=== PATIENT | male | born 1975 | race Caucasian/White ===

== ENCOUNTER 2018-09-13 09:56 | Emergency (ER) | payer BC, OTHER ==
[2018-09-13 10:01] VITALS: BP 147/91
--- NOTE | 2018-09-13 10:31 | EDM.PDOC ---
ED HPI GENERAL MEDICAL PROBLEM - General Chief Complaint: General Stated Complaint: FLU [id number] Time Seen by Provider: 09/13/18 10:28 Source of Information: Reports: Patient History Limitations: Reports: No Limitations - History of Present Illness INITIAL COMMENTS - FREE TEXT/NARRATIVE: onset Sx yesterday, F/C cough. - Related Data Allergies Allergy/AdvReac Type Severity Reaction Status Date / Time amoxicillin [Amoxicillin] Allergy Hives Verified 09/13/18 10:01 Penicillins Allergy Hives Verified 09/13/18 10:01 Home Meds: Home Meds Lisinopril 10 mg PO DAILY 01/30/16 [History] atorvaSTATin [Lipitor] 20 mg PO DAILY 01/30/16 [History] Past Medical History Cardiovascular History: Reports: High Cholesterol, Hypertension Respiratory History: Reports: None Gastrointestinal History: Reports: None Genitourinary History: Reports: None Musculoskeletal History: Reports: None Neurological History: Reports: None Psychiatric History: Reports: None Endocrine/Metabolic History: Reports: None Hematologic History: Reports: None Immunologic History: Reports: None Oncologic (Cancer) History: Reports: None Dermatologic History: Reports: None - Infectious Disease History Infectious Disease History: Reports: None - Past Surgical History Head Surgeries/Procedures: Reports: None HEENT Surgical History: Reports: Tonsillectomy Social & Family History - Family History Family Medical History: Noncontributory - Tobacco Use Smoking Status *Q: Current Every Day Smoker Years of Tobacco use: 1 Packs/Tins Daily: 1 - Caffeine Use Caffeine Use: Reports: Coffee - Recreational Drug Use Recreational Drug Use: No ED ROS GENERAL - Review of Systems Review Of Systems: ROS reveals no pertinent complaints other than HPI. ED EXAM, GENERAL - Physical Exam Exam: See Below Exam Limited By: No Limitations General Appearance: Alert, WD/WN, Mild Distress, Other (discomfort) Ears: Normal External Exam, Normal Canal, Hearing Grossly Normal, Normal TMs Throat/Mouth: Normal Voice, No Airway Compromise Head: Atraumatic Neck: Non-Tender, Full Range of Motion Respiratory/Chest: No Respiratory Distress, No Accessory Muscle Use, Rhonchi. No: Decreased Breath Sounds Cardiovascular: Regular Rate, Rhythm GI/Abdominal: Soft, Non-Tender Neurological: Alert, Oriented, Normal Cognition, Normal Gait, No Motor/Sensory Deficits Psychiatric: Normal Affect, Normal Mood Skin Exam: Warm, Dry, Normal Color Lymphatic: No Adenopathy Course - Vital Signs Last Recorded V/S: Last Vital Signs Temp 36.6 C 09/13/18 09:58 Pulse 100 09/13/18 09:58 Resp 16 09/13/18 09:58 BP 147/91 H 09/13/18 09:58 Pulse Ox 96 09/13/18 09:58 Departure - Departure Time of Disposition: 10:29 Disposition: Home, Self-Care 01 Condition: Good Clinical Impression: Flu-like symptoms, Bronchitis - Discharge Information Instructions: Upper Respiratory Infection, Adult, [id number] Additional Instructions: 1) rest and sleep as much as possible 2) drink lots of liquids 3) take tylenol motrin aspirin as needed for body aches and fever 4) recheck as needed
== END 2018-09-13 10:35 | disposition home or self-care (01) ==
LOC: DL.ED 09:56
DX: J11.1 Influenza due to unidentified influenza virus with other respiratory manifestations (principal); J40 Bronchitis, not specified as acute or chronic; F17.210 Nicotine dependence, cigarettes, uncomplicated; Z88.1 Allergy status to other antibiotic agents; Z88.0 Allergy status to penicillin; Z79.899 Other long term (current) drug therapy
CPT/HCPCS: 87804; 99283

== ENCOUNTER 2019-08-07 17:13 | Emergency (ER) | payer BC ==
[2019-08-07 17:48] VITALS: BP 156/92; PULSE 117
[2019-08-07] MEDS ORDERED: predniSONE 20 MG Tab PO ONE (17:56)
[2019-08-07] MEDS ORDERED: Doxycycline 100 MG Cap PO ONE (17:56)
--- NOTE | 2019-08-07 17:59 | EDM.PDOC ---
Scribed by Josey Mendez 08/07/19 [id number] for Ildefonso Manzano MD ED HPI GENERAL MEDICAL PROBLEM - General Chief Complaint: Neuro Symptoms/Deficits Stated Complaint: WEEKNESS, PAIN LEFT SIDE OF FACE, Time Seen by Provider: 08/07/19 17:25 Source of Information: Reports: Patient, RN, RN Notes Reviewed History Limitations: Reports: No Limitations - History of Present Illness INITIAL COMMENTS - FREE TEXT/NARRATIVE: Patient presents to the ER with complaint that he noted some right jaw pain after lunch today. He is unable to state when this started or when he noted this. First started around the ear but now down jaw. He does note that his right eyelid is not closing tight and there is noted right sided mouth droop with no forehead or tongue involvement. Onset: Today Duration: Constant Location: Reports: Face Quality: Reports: Ache Severity: Moderate Improves with: Reports: None Worsens with: Reports: None Associated Symptoms: Reports: No Other Symptoms Right Jaw Pain Score (Numeric/FACES): 6 - Related Data Allergies Allergy/AdvReac Type Severity Reaction Status Date / Time amoxicillin [Amoxicillin] Allergy Hives Verified 08/07/19 17:48 Penicillins Allergy Hives Verified 08/07/19 17:48 Home Meds: Home Meds Lisinopril 10 mg PO DAILY 01/30/16 [History] atorvaSTATin [Lipitor] 20 mg PO DAILY 01/30/16 [History] Past Medical History Cardiovascular History: Reports: High Cholesterol, Hypertension Respiratory History: Reports: None Gastrointestinal History: Reports: None Genitourinary History: Reports: None Musculoskeletal History: Reports: None Neurological History: Reports: None Psychiatric History: Reports: None Endocrine/Metabolic History: Reports: None Hematologic History: Reports: None Immunologic History: Reports: None Oncologic (Cancer) History: Reports: None Dermatologic History: Reports: None - Infectious Disease History Infectious Disease History: Reports: None - Past Surgical History Head Surgeries/Procedures: Reports: None HEENT Surgical History: Reports: Tonsillectomy Social & Family History - Family History Family Medical History: Noncontributory - Caffeine Use Caffeine Use: Reports: Coffee ED ROS GENERAL - Review of Systems Review Of Systems: Comprehensive ROS is negative, except as noted in HPI. ED EXAM, NEURO - Physical Exam Exam: See Below Exam Limited By: No Limitations General Appearance: Alert, WD/WN, No Apparent Distress Eye Exam: Bilateral Eye: EOMI, Normal Inspection, PERRL Ears: Normal External Exam, Normal Canal, Hearing Grossly Normal, Normal TMs Nose: Normal Inspection, Normal Mucosa, No Blood Throat/Mouth: Normal Inspection, Normal Lips, Normal Teeth, Normal Gums, Normal Oropharynx, Normal Voice, No Airway Compromise Head Exam: Atraumatic, Normocephalic Neck: Normal Inspection, Supple, Non-Tender, Full Range of Motion Respiratory/Chest: No Respiratory Distress, Lungs Clear, Normal Breath Sounds, No Accessory Muscle Use, Chest Non-Tender Cardiovascular: Normal Peripheral Pulses, Regular Rate, Rhythm, No Edema, No Gallop, No JVD, No Murmur, No Rub GI/Abdominal: Normal Bowel Sounds, Soft, Non-Tender, No Organomegaly, No Distention, No Abnormal Bruit, No Mass (Male) Exam: Deferred Rectal (Males) Exam: Deferred, Rectal Fissure Neurological: Alert, Normal Mood/Affect, Normal Dorsiflexion, Normal Plantar Flexion, Normal Gait, Normal Reflexes, Oriented x 3, Other (right facial droop, spares forehead and tongue, normal speech. NIH 1 due to right facial droop. ) Back Exam: Normal Inspection, Full Range of Motion, NT Extremities: Normal Inspection, Normal Range of Motion, Non-Tender, No Pedal Edema, Normal Capillary Refill Psychiatric: Normal Affect, Normal Mood Skin Exam: Warm, Dry, Intact, Normal Color, No Rash EKG INTERPRETATION EKG Date: 08/07/19 Time: 17:26 Rhythm: Other (sinus tachycardia) Rate (Beats/Min): 116 [place]: Normal P-Wave: Present QRS: Normal ST-T: Normal QT: Normal Course - Vital Signs Last Recorded V/S: Last Vital Signs Temp 98.2 F 08/07/19 17:15 Pulse 117 H 08/07/19 17:15 Resp 16 08/07/19 17:15 BP 156/92 H 08/07/19 17:15 Pulse Ox 98 08/07/19 17:15 - Orders/Labs/Meds Orders: Active Orders 24 hr Category Date Time Status Blood Glucose Check, Bedside [RC] ONETIME Care 08/07/19 17:24 Active EKG 12 Lead [EKG Documentation Completion] [RC] STAT Care 08/07/19 17:24 Active NIH Stroke Scale [RC] ASDIRECTED Care 08/07/19 17:26 Active Head wo Cont [CT] Stat Exams 08/07/19 17:24 Taken COMPREHENSIVE METABOLIC PN,CMP [CHEM] Stat Lab 08/07/19 17:38 Received CRP [C-REACTIVE PROTEIN] [CHEM] Stat Lab 08/07/19 17:38 Received Labs: Laboratory Tests 08/07/19 Range/Units 17:38 WBC 10.4 H (5.0-10.0) 10^3/uL RBC 4.72 (4.6-6.2) 10^6/uL Hgb 15.0 (14.0-18.0) g/dL Hct 42.3 (40.0-54.0) % MCV 89.6 (80-100) fL MCH 31.8 (27.0-34.0) pg MCHC 35.5 H (33.0-35.0) g/dL Plt Count 219 (150-450) 10^3/uL Neut % (Auto) 66.5 (42.2-75.2) % Lymph % (Auto) 22.9 (20.5-50.1) % [place] % (Auto) 6.7 (2-8) % Eos % (Auto) 3.5 H (1.0-3.0) % Baso % (Auto) 0.4 (0.0-1.0) % Meds: Medications Discontinued Medications Generic Name Dose Route Start Last Admin Trade Name Freq PRN Reason Stop Dose Admin Doxycycline Hyclate 100 mg 08/07/19 17:56 Vibramycin PO 08/07/19 17:57 ONETIME ONE Prednisone 60 mg 08/07/19 17:56 Prednisone PO 08/07/19 17:57 ONETIME ONE - Radiology Interpretation Free Text/Narrative:: Head CT: No acute intracerebral abnormality or injury No acute infarct or intracerebral bleed. Normal brain. Jolene Stroke Program Early CT Score ( ASPECTS score)= 10. Moderate mucosal thickening is present in both maxillary sinuses and the right sphenoid and ethmoid sinuses. See rad report. Departure - Departure Time of Disposition: 17:53 Disposition: Home, Self-Care 01 Condition: Good Clinical Impression: Yoo's palsy Sinusitis Qualifiers: Sinusitis location: pansinusitis Chronicity: subacute Qualified Code(s): J01.40 - Acute pansinusitis, unspecified - Discharge Information *PRESCRIPTION DRUG MONITORING PROGRAM REVIEWED*: No *COPY OF PRESCRIPTION DRUG MONITORING REPORT IN PATIENT LEONARD: No Instructions: Yoo Palsy, Adult, Sinusitis, Adult, [id number] Forms: ED Department Discharge Additional Instructions: RX: Doxycycline 100mg. RX: Prednisone 20mg. Follow up with your doctor in clinic in 1 week. Sepsis Event Note - Focused Exam Vital Signs: Vital Signs Temp Pulse Resp BP Pulse Ox 08/07/19 17:15 98.2 F 117 H 16 156/92 H 98 Date Exam was Performed: 08/07/19 Time Exam was Performed: 17:58 - My Orders Last 24 Hours: My Active Orders 08/07/19 17:24 Blood Glucose Check, Bedside [RC] ONETIME EKG 12 Lead [EKG Documentation Completion] [RC] STAT Head wo Cont [CT] Stat 08/07/19 17:26 NIH Stroke Scale [RC] ASDIRECTED 08/07/19 17:38 COMPREHENSIVE METABOLIC PN,CMP [CHEM] Stat CRP [C-REACTIVE PROTEIN] [CHEM] Stat - Assessment/Plan Last 24 Hours: My Active Orders 08/07/19 17:24 Blood Glucose Check, Bedside [RC] ONETIME EKG 12 Lead [EKG Documentation Completion] [RC] STAT Head wo Cont [CT] Stat 08/07/19 17:26 NIH Stroke Scale [RC] ASDIRECTED 08/07/19 17:38 COMPREHENSIVE METABOLIC PN,CMP [CHEM] Stat CRP [C-REACTIVE PROTEIN] [CHEM] Stat I have read and agree with the documentation that has been completed regarding this visit. By signing this record, I attest that the documentation was completed in my physical presence and is an accurate record of the encounter.
[2019-08-07 18:00] LABS: ANION GAP 12.6; CHLORIDE,CL 103 mmol/L (101-111); SODIUM,NA 138 mmol/L (135-145)
== END 2019-08-07 18:15 | disposition home or self-care (01) ==
LOC: DL.ED 17:13
DX: G51.0 Bell's palsy (principal); J01.40 Acute pansinusitis, unspecified; I10 Essential (primary) hypertension; E78.00 Pure hypercholesterolemia, unspecified; Z88.0 Allergy status to penicillin; Z79.899 Other long term (current) drug therapy
CPT/HCPCS: 36415; 70450; 80053; 82962; 85025; 86140; 93005; 99284; A9270

== ENCOUNTER 2020-06-12 10:36 | Emergency (ER) | payer BC ==
[2020-06-12 11:20] LABS: ANION GAP 14.9 mEq/L (7-13); CHLORIDE,CL 100 mmol/L (98-107); SODIUM,NA 136 mmol/L (136-145)
[2020-06-12 11:25] LABS: PTT,PARTIAL THROMBOPLSTIN TIME 23.4 SEC (22.0-34.0)
--- NOTE | 2020-06-12 12:23 | EDM.PDOC ---
ED HPI GENERAL MEDICAL PROBLEM - General Chief Complaint: Back Pain or Injury Stated Complaint: STABBING BACK PAIN/SPASMS Time Seen by Provider: 06/12/20 10:50 Source of Information: Reports: Patient, RN, RN Notes Reviewed History Limitations: Reports: No Limitations - History of Present Illness INITIAL COMMENTS - FREE TEXT/NARRATIVE: pt reports being at work this am, suddenly developed sharp pain to his mid upper back. rated pain at the time as 8/10. states pain upon arrival to ER is a 2. has hx of muscle spasms in his back, but this episode was different than usual. denies injury/trauma/strain. hx of lower back surgery about 1 year ago. denies fever, chills, SOB, chest pain, n/v/d. admits to recent COVID infection about 5 weeks ago. Onset: Today, Sudden - Related Data Allergies Allergy/AdvReac Type Severity Reaction Status Date / Time amoxicillin [Amoxicillin] Allergy Hives Verified 08/07/19 17:48 Penicillins Allergy Hives Verified 08/07/19 17:48 Home Meds: Home Meds Lisinopril 10 mg PO DAILY 01/30/16 [History] atorvaSTATin [Lipitor] 20 mg PO DAILY 01/30/16 [History] Past Medical History Cardiovascular History: Reports: High Cholesterol, Hypertension Respiratory History: Reports: None Gastrointestinal History: Reports: None Genitourinary History: Reports: None Musculoskeletal History: Reports: None Neurological History: Reports: None Psychiatric History: Reports: None Endocrine/Metabolic History: Reports: None Hematologic History: Reports: None Immunologic History: Reports: None Oncologic (Cancer) History: Reports: None Dermatologic History: Reports: None - Infectious Disease History Infectious Disease History: Reports: None - Past Surgical History Head Surgeries/Procedures: Reports: None HEENT Surgical History: Reports: Tonsillectomy Social & Family History - Family History Family Medical History: No Pertinent Family History - Caffeine Use Caffeine Use: Reports: Coffee ED ROS GENERAL - Review of Systems Review Of Systems: Comprehensive ROS is negative, except as noted in HPI. ED EXAM, UPPER BACK/NECK PAIN - Physical Exam Exam: See Below Exam Limited By: No Limitations General Appearance: Alert, WD/WN, No Apparent Distress Eye Exam: Bilateral Eye: EOMI, Normal Inspection Ears Exam: Normal External Exam, Hearing Grossly Normal Nose Exam: Normal Inspection Throat/Mouth Exam: Normal Inspection, Normal Voice, No Airway Compromise Head Exam: Atraumatic, Normocephalic Neck Exam: Non-Tender, Full Range of Motion, Normal Alignment, Normal Inspection. No: Limited Range of Motion, Muscle Spasm, Paraspinous Muscle Tender, Spinous Processes Tender Nexus Criteria: No: Posterior, Midline Cervical Tenderness, Evidence of Intoxication, Altered Level of Consciousness, Focal Neurological Deficit, Painful Distraction Injuries Cardiovascular/Respiratory: Regular Rate, Rhythm, Normal Peripheral Pulses, No JVD, Normal Breath Sounds, No Respiratory Distress GI/Abdominal: Normal Bowel Sounds, Soft, Non-Tender (Male) Exam: Deferred Rectal (Males) Exam: Deferred Back Exam: Normal Inspection, Full Range of Motion. No: CVA Tenderness (L), CVA Tenderness (R), Paraspinal Tenderness, Vertebral Tenderness Extremities: Normal Inspection, Normal Range of Motion, Non-Tender Neurologic: No Motor/Sensory Deficits, Alert, Normal Mood/Affect, Oriented x 3 Psychiatric: Normal Affect, Normal Mood Skin Exam: Normal Color, Warm/Dry Lymphatic: No Adenopathy Course - Vital Signs Last Recorded V/S: Last Vital Signs Temp 98.1 F 06/12/20 10:40 Pulse 95 06/12/20 10:40 Resp 16 06/12/20 10:40 BP 169/84 H 06/12/20 10:40 Pulse Ox 99 06/12/20 10:40 - Orders/Labs/Meds Orders: Active Orders 24 hr Category Date Time Status EKG Documentation Completion [RC] STAT Care 06/12/20 10:46 Active Labs: Laboratory Tests 06/12/20 06/12/20 06/12/20 Range/Units 10:51 10:51 10:51 WBC 9.6 (5.0-10.0) 10^3/uL RBC 4.95 (4.6-6.2) 10^6/uL Hgb 15.8 (14.0-18.0) g/dL Hct 44.5 (40.0-54.0) % MCV 89.9 (80-100) fL MCH 31.9 (27.0-34.0) pg MCHC 35.5 H (33.0-35.0) g/dL Plt Count 202 (150-450) 10^3/uL Neut % (Auto) 62.1 (42.2-75.2) % Lymph % (Auto) 26.6 (20.5-50.1) % [place] % (Auto) 6.6 (2-8) % Eos % (Auto) 4.1 H (1.0-3.0) % Baso % (Auto) 0.6 (0.0-1.0) % PT 10.3 (9.0-12.0) SEC INR 1.1 (0.9-1.2) APTT 23.4 (22.0-34.0) SEC D-Dimer, Quantitative < 100 (0-400) ng/mL Sodium 136 (136-145) mmol/L Potassium 3.9 (3.5-5.1) mmol/L Chloride 100 (98-107) mmol/L Carbon Dioxide 25 (21-32) mmol/L Anion Gap 14.9 H (7-13) mEq/L BUN 16 (7-18) mg/dL Creatinine 1.10 (0.70-1.30) mg/dL Est Cr Clr Drug Dosing TNP Estimated GFR (MDRD) > 60 BUN/Creatinine Ratio 14.5 (No establ ref range) Glucose 125 H (74-99) mg/dL Calcium 9.2 (8.5-10.1) mg/dL Total Bilirubin 0.8 (0.2-1.0) mg/dL AST 16 (15-37) U/L ALT 39 (16-63) U/L Alkaline Phosphatase 79 (46-116) U/L Troponin I < 0.017 (0.000-0.056) ng/mL Total Protein 8.0 (6.4-8.2) g/dL Albumin 4.6 (3.4-5.0) g/dL Globulin 3.4 Albumin/Globulin Ratio 1.4 Amylase 36 (25-115) U/L Lipase 113 (73-393) U/L Departure - Departure Time of Disposition: 13:13 Disposition: Home, Self-Care 01 Condition: Good Clinical Impression: Thoracic back pain Qualifiers: Chronicity: unspecified Back pain laterality: unspecified Qualified Code(s): M54.6 - Pain in thoracic spine - Discharge Information *PRESCRIPTION DRUG MONITORING PROGRAM REVIEWED*: No *COPY OF PRESCRIPTION DRUG MONITORING REPORT IN PATIENT LEONARD: No Instructions: Muscle Strain, [id number], Thoracic Strain, [id number] Forms: ED Department Discharge Additional Instructions: There were no acute findings on your x-rays, your labs were unremarkable. Apply ice or heat to area of spasm/pain as needed. May use Tylenol or ibuprofen as directed for pain. Follow-up with you PCP if symptoms continue. Sepsis Event Note (ED) - Focused Exam Vital Signs: Vital Signs Temp Pulse Resp BP Pulse Ox 06/12/20 10:40 98.1 F 95 16 169/84 H 99 - My Orders Last 24 Hours: My Active Orders 06/12/20 10:46 EKG Documentation Completion [RC] STAT - Assessment/Plan Last 24 Hours: My Active Orders 06/12/20 10:46 EKG Documentation Completion [RC] STAT
--- NOTE | 2020-06-12 13:07 | CR ---
EXAMINATION: Chest 2V SEX: Male AGE: 44 years CLINICAL HISTORY: 44-year-old male complaining of mid back pain. No trauma. INTERPRETATION: 1. Hypertrophic marginal spondylosis and subtle intervertebral disc space narrowing several levels mid thoracic spine suggesting chronic disc disease. No pathologic skeletal lesion. No fracture or dislocation. 2. Normal cardiac silhouette (size and configuration) unchanged since 08 April 2008 comparison. 3. No new pulmonary vascular congestion, cephalization of flow, alveolar edema or pleural effusion. 4. No new lung mass, hilar lymphadenopathy or focal lobar infiltrate/atelectasis. No peripheral "groundglass" lung densities. 5. No pneumothorax or pneumomediastinum. Midline tracheal bronchial airway unremarkable. 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 No acute cardiopulmonary abnormality.
[2020-06-12 13:16] VITALS: BP 169/84; PULSE 95
--- NOTE | 2020-06-12 13:22 | CR ---
EXAMINATION: Thoracic Spine 2V SEX: Male AGE: 44 years CLINICAL HISTORY: 44-year-old male experiencing mid back pain. INTERPRETATION: Abnormal. 1. Signs of relative mild, multilevel intervertebral disc space narrowing mid and lower thoracic spine. 2. Hypertrophic marginal spondylosis (spurs). 3. Subtle decreased height of the T11 and T12 vertebra anteriorly indicating probable old hyperflexion compression injury (marginal spondylosis). 4. No sign of pathologic skeletal lesion, paravertebral soft tissue mass, acute thoracic fracture or dislocation. Posterior ribs unremarkable. Normal mediastinal width. Conclusion: Evidence of old trauma, multilevel disc disease and hypertrophic spondylosis.
== END 2020-06-12 13:52 | disposition home or self-care (01) ==
LOC: DL.ED 10:36
DX: M54.6 Pain in thoracic spine (principal); I10 Essential (primary) hypertension; E78.00 Pure hypercholesterolemia, unspecified; Z90.49 Acquired absence of other specified parts of digestive tract; Z88.0 Allergy status to penicillin; Z88.1 Allergy status to other antibiotic agents; Z79.899 Other long term (current) drug therapy
CPT/HCPCS: 36415; 71046; 72070; 80053; 82150; 83690; 84484; 85025; 85379; 85610; 85730; 93005; 99284-25

== ENCOUNTER 2022-04-26 18:21 | Emergency (ER) | payer BC ==
[2022-04-26 19:00] VITALS: PULSE 100
[2022-04-26 19:34] VITALS: BP 137/89
== END 2022-04-26 20:16 | disposition home or self-care (01) ==
LOC: DL.ED 18:21
DX: S93.401A Sprain of unspecified ligament of right ankle, initial encounter (principal); I10 Essential (primary) hypertension; E78.00 Pure hypercholesterolemia, unspecified; Z79.899 Other long term (current) drug therapy; X50.1XXA Overexertion from prolonged static or awkward postures, initial encounter
CPT/HCPCS: 73600-RT; 99282; 99283

== ENCOUNTER 2022-12-13 05:17 | Day surgery (SDC) | payer BC ==
[~2022-12-13 05:17] MED LIST: Dextrose 5%-0.45% NaCl 1,000 ML IV SCH; Sodium Chloride 0.9% 10 ML Syringe FLUSH PRN; Sodium Chloride 0.9% 10 ML Syringe FLUSH SCH
[2022-12-13] MEDS ORDERED: fentaNYL 100 MCG/2 ML SDV IV ONE ×7 (05:18→06:45)
[2022-12-13] MEDS ORDERED: Midazolam 1 MG/ML 2 ML SDV IV ONE ×9 (05:18→06:47)
[2022-12-13] MEDS ORDERED: Dextrose 5%-0.45% NaCl 1,000 ML IV SCH (06:00)
[2022-12-13] MEDS ORDERED: Midazolam 1 MG/ML 2 ML SDV ONE (06:23)
[2022-12-13] MEDS ORDERED: fentaNYL 100 MCG/2 ML SDV ONE (06:24)
[2022-12-13 08:05] VITALS: BP 117/70; PULSE 77
== END 2022-12-13 08:13 | disposition home or self-care (01) ==
LOC: DL.ENDO 05:17
PROVIDERS: ATTEND Internal Medicine Gastroenterology
DX: Z12.11 Encounter for screening for malignant neoplasm of colon (principal); K63.5 Polyp of colon; E66.09 Other obesity due to excess calories; I10 Essential (primary) hypertension; E78.5 Hyperlipidemia, unspecified; K21.9 Gastro-esophageal reflux disease without esophagitis; E55.9 Vitamin D deficiency, unspecified; Z88.0 Allergy status to penicillin; Z98.890 Other specified postprocedural states; Z68.31 Body mass index [BMI] 31.0-31.9, adult
CPT/HCPCS: J2250; J3010; J7042